=== PATIENT | male | born 1940 ===

== ENCOUNTER 2022-03-05 10:58 | Emergency (ER) | payer MEDICARE ==
[2022-03-05 13:08] LABS: SARS-CoV-2 NAA Rapid Test Not Detected (NotDetected)
== END 2022-03-05 13:45 | disposition home or self-care (01) ==
LOC: ERS 10:58
DX: J11.1 Influenza due to unidentified influenza virus with other respiratory manifestations (principal); I10 Essential (primary) hypertension; E78.5 Hyperlipidemia, unspecified; Z20.822 Contact with and (suspected) exposure to COVID-19
CPT/HCPCS: 0241U; 71045